=== PATIENT | male | born 1945 | race Caucasian/White ===

== ENCOUNTER 2020-06-05 10:01 | Emergency (ER) | payer OTHER, MEDICARE ==
[~2020-06-05] VITALS: Ht 177.8 cm; Wt 93.0 kg
[~2020-06-05 10:01] MED LIST: CYAN500 PO; LISI20 PO; METF500 PO; VITAMIN D325 MC3 PO
[2020-06-05 10:51] LABS: Hematocrit 46.9 % (37.0-53.0); Hemoglobin 15.6 g/dL (13.5-17.5); Mean Corpuscular HGB 29.9 pg (26.0-34.0); Mean Corpuscular HGB Conc 33.3 g/dL (31.5-36.5); Mean Corpuscular Volume 90 fL (80-100); Mean Platelet Volume 9.8 fL (9.1-12.4); Platelet Count 313 K/mm3 (150-400); RDW Coefficient Variation 13.2 % (11.7-14.2); RDW Standard Deviation 43.2 fL (35.1-46.3); Red Blood Cell Count 5.22 M/mm3 (4.30-5.90); White Blood Cell Count 8.32 K/mm3 (4.00-11.30)
[2020-06-05 11:11] LABS: Alanine Aminotransfer (ALT/SGP 33 U/L (12-78); Albumin, Blood 3.1 g/dL (3.4-5.0); Albumin/Globulin Ratio 0.9 (0.8-1.8); Alk Phos 84 U/L (50-136); Anion Gap 8 mmol/L (6-16); Aspartate Aminotrans (AST/SGOT 20 U/L (12-37); Bilirubin, Total 1.5 mg/dL (0.1-1.0); Blood Urea Nitrogen 25 mg/dL (8-24); Bun/Creatinine Ratio 25.4 (12.0-20.0); CO2, Blood 21 mmol/L (21-32); Calcium, Blood 9.5 mg/dL (8.5-10.1); Chloride, Blood 108 mmol/L (98-108); Creatinine, Blood 0.99 mg/dL (0.60-1.20); Globulin, Blood 3.6 g/dL (2.2-4.0); Glomerular Filtration Rate >60 (60-); Glucose, Blood 161 mg/dL (70-99); Potassium, Blood 3.5 mmol/L (3.5-5.5); Sodium, Blood 137 mmol/L (136-145); Total Protein, Blood 6.7 g/dL (6.4-8.2)
[2020-06-05 11:30] LABS: BAND PERCENT MAN 19 % (0-8); BASOPHILS PERCENT MAN 0 % (0-2); EOSINOPHILS ABSOLUTE MAN 0.16 K/mm3 (0.00-0.68); EOSINOPHILS PERCENT MAN 2 % (0-6); LYMPHOCYTES ABSOLUTE MAN 1.58 K/mm3 (0.84-5.20); LYMPHOCYTES PERCENT MAN 19 % (21-46); MONOCYTES ABSOLUTE MAN 1.49 K/mm3 (0.16-1.47); MONOCYTES PERCENT MAN 18 % (4-13); NEUTROPHILS ABSOLUTE MAN 5.07 K/mm3 (1.96-9.15); SEG NEUTROPHILS PERCENT MAN 42 % (41-73); TOTAL CELLS COUNTED 100
[2020-06-05] MEDS ORDERED: AZIT500 PO (12:23)
== END 2020-06-05 13:45 | disposition home or self-care (01) ==
LOC: ER 10:01
PROVIDERS: Emergency Medicine
DX: A09 Infectious gastroenteritis and colitis, unspecified (principal); E86.0 Dehydration; M25.512 Pain in left shoulder; G89.29 Other chronic pain; I10 Essential (primary) hypertension; F17.210 Nicotine dependence, cigarettes, uncomplicated; Z79.84 Long term (current) use of oral hypoglycemic drugs; Z79.899 Other long term (current) drug therapy
CPT/HCPCS: 36415; 73030; 80053; 85025; 93005; 93010; 96361; 96365; 96375; 99284-25; J0456; J2405; J7030; J7050

== ENCOUNTER 2020-07-13 10:39 | Emergency (ER) | payer OTHER, MEDICARE ==
[~2020-07-13] VITALS: Ht 177.8 cm; Wt 90.7 kg
[~2020-07-13 10:39] MED LIST changes: +AZIT500 PO
[2020-07-13 11:13] LABS: BASOPHILS ABSOLUTE AUTO 0.03 K/mm3 (0.00-0.23); BASOPHILS PERCENT AUTO 0 % (0-2); EOSINOPHILS ABSOLUTE AUTO 0.15 K/mm3 (0.00-0.68); EOSINOPHILS PERCENT AUTO 2 % (0-6); Hematocrit 44.6 % (37.0-53.0); Hemoglobin 14.3 g/dL (13.5-17.5); IMMATURE GRAN ABSOLUTE AUTO 0.03 K/mm3 (0.00-0.10); IMMATURE GRAN PERCENT AUTO 0 % (0-1); LYMPHOCYTES ABSOLUTE AUTO 1.95 K/mm3 (0.84-5.20); LYMPHOCYTES PERCENT AUTO 27 % (21-46); MONOCYTES ABSOLUTE AUTO 0.54 K/mm3 (0.16-1.47); MONOCYTES PERCENT AUTO 7 % (4-13); Mean Corpuscular HGB 29.5 pg (26.0-34.0); Mean Corpuscular HGB Conc 32.1 g/dL (31.5-36.5); Mean Corpuscular Volume 92 fL (80-100); Mean Platelet Volume 9.8 fL (9.1-12.4); NEUTROPHILS ABSOLUTE AUTO 4.67 K/mm3 (1.96-9.15); NEUTROPHILS PERCENT AUTO 63 % (41-73); Platelet Count 252 K/mm3 (150-400); RDW Coefficient Variation 13.5 % (11.7-14.2); RDW Standard Deviation 46.1 fL (35.1-46.3); Red Blood Cell Count 4.85 M/mm3 (4.30-5.90); White Blood Cell Count 7.37 K/mm3 (4.00-11.30)
[2020-07-13 11:35] LABS: Alanine Aminotransfer (ALT/SGP 31 U/L (12-78); Albumin, Blood 3.2 g/dL (3.4-5.0); Alk Phos 85 U/L (50-136); Anion Gap 7 mmol/L (6-16); Aspartate Aminotrans (AST/SGOT 14 U/L (12-37); Bilirubin, Total 1.4 mg/dL (0.1-1.0); Blood Urea Nitrogen 11 mg/dL (8-24); Bun/Creatinine Ratio 15.8 (12.0-20.0); CO2, Blood 25 mmol/L (21-32); Calcium, Blood 9.1 mg/dL (8.5-10.1); Chloride, Blood 107 mmol/L (98-108); Globulin, Blood 3.2 g/dL (2.2-4.0); Glomerular Filtration Rate >60 (60-); Glucose, Blood 121 mg/dL (70-99); Potassium, Blood 3.5 mmol/L (3.5-5.5); Sodium, Blood 139 mmol/L (136-145); Total Protein, Blood 6.4 g/dL (6.4-8.2)
[2020-07-13] MEDS ORDERED: ONDA4ODT SL (12:17)
== END 2020-07-13 14:00 | disposition home or self-care (01) ==
LOC: ER 10:39
PROVIDERS: Emergency Medicine
DX: S09.93XA Unspecified injury of face, initial encounter (principal); R42 Dizziness and giddiness; E11.9 Type 2 diabetes mellitus without complications; I10 Essential (primary) hypertension; Z79.84 Long term (current) use of oral hypoglycemic drugs; Z79.899 Other long term (current) drug therapy; Z87.891 Personal history of nicotine dependence; W01.0XXA Fall on same level from slipping, tripping and stumbling without subsequent striking against object, initial encounter
CPT/HCPCS: 36415; 80053; 82947; 84484; 85025; 93005; 93010; 99284-25

== ENCOUNTER 2020-07-23 20:04 | Emergency (ER) | payer OTHER, MEDICARE ==
[~2020-07-23] VITALS: Ht 177.8 cm; Wt 91.6 kg
[~2020-07-23 20:04] MED LIST changes: +ONDA4ODT SL
[2020-07-23 20:30] LABS: BASOPHILS ABSOLUTE AUTO 0.04 K/mm3 (0.00-0.23); BASOPHILS PERCENT AUTO 0 % (0-2); EOSINOPHILS ABSOLUTE AUTO 0.11 K/mm3 (0.00-0.68); EOSINOPHILS PERCENT AUTO 1 % (0-6); Hematocrit 50.5 % (37.0-53.0); Hemoglobin 16.1 g/dL (13.5-17.5); IMMATURE GRAN ABSOLUTE AUTO 0.02 K/mm3 (0.00-0.10); IMMATURE GRAN PERCENT AUTO 0 % (0-1); LYMPHOCYTES PERCENT AUTO 8 % (21-46); MONOCYTES PERCENT AUTO 10 % (4-13); Mean Corpuscular HGB 29.2 pg (26.0-34.0); Mean Corpuscular HGB Conc 31.9 g/dL (31.5-36.5); Mean Corpuscular Volume 92 fL (80-100); NEUTROPHILS ABSOLUTE AUTO 7.12 K/mm3 (1.96-9.15); NEUTROPHILS PERCENT AUTO 80 % (41-73); Platelet Count 318 K/mm3 (150-400); RDW Coefficient Variation 13.6 % (11.7-14.2); RDW Standard Deviation 46.3 fL (35.1-46.3); Red Blood Cell Count 5.52 M/mm3 (4.30-5.90); White Blood Cell Count 8.89 K/mm3 (4.00-11.30)
[2020-07-23 20:53] LABS: Alanine Aminotransfer (ALT/SGP 40 U/L (12-78); Albumin, Blood 3.7 g/dL (3.4-5.0); Alk Phos 105 U/L (50-136); Anion Gap 4 mmol/L (6-16); Aspartate Aminotrans (AST/SGOT 21 U/L (12-37); Bilirubin, Total 1.2 mg/dL (0.1-1.0); Blood Urea Nitrogen 22 mg/dL (8-24); CO2, Blood 27 mmol/L (21-32); Calcium, Blood 9.8 mg/dL (8.5-10.1); Chloride, Blood 110 mmol/L (98-108); Creatinine, Blood 0.82 mg/dL (0.60-1.20); Globulin, Blood 3.6 g/dL (2.2-4.0); Glomerular Filtration Rate >60 (60-); Glucose, Blood 134 mg/dL (70-99); Potassium, Blood 4.2 mmol/L (3.5-5.5); Sodium, Blood 141 mmol/L (136-145); Total Protein, Blood 7.3 g/dL (6.4-8.2)
[2020-07-23 20:56] LABS: CPK Creatine Kinase 299 U/L (39-308)
[2020-07-23] MEDS ORDERED: NAPROXEN250 M1 PO (22:59)
== END 2020-07-24 00:52 | disposition home or self-care (01) ==
LOC: ER 20:04
PROVIDERS: Emergency Medicine
DX: S39.012A Strain of muscle, fascia and tendon of lower back, initial encounter (principal); S70.01XA Contusion of right hip, initial encounter; E86.0 Dehydration; E11.9 Type 2 diabetes mellitus without complications; I10 Essential (primary) hypertension; W10.9XXA Fall (on) (from) unspecified stairs and steps, initial encounter; Y92.009 Unspecified place in unspecified non-institutional (private) residence as the place of occurrence of the external cause
CPT/HCPCS: 36415; 72100; 73502; 80053; 82550; 83690; 85025; 96361; 96374; 96375; 99285-25; J1885; J3010; J7030

== ENCOUNTER 2020-07-24 11:43 | Emergency (ER) | payer OTHER, MEDICARE ==
[~2020-07-24] VITALS: Ht 172.7 cm; Wt 83.9 kg
[~2020-07-24 11:43] MED LIST changes: +NAPROXEN250 M1 PO
== END 2020-07-24 15:01 | disposition home or self-care (01) ==
LOC: ER 11:43
DX: Z76.89 Persons encountering health services in other specified circumstances (principal); I10 Essential (primary) hypertension; E11.9 Type 2 diabetes mellitus without complications; Z79.84 Long term (current) use of oral hypoglycemic drugs; Z87.891 Personal history of nicotine dependence; Z79.899 Other long term (current) drug therapy
CPT/HCPCS: 99284

== ENCOUNTER 2020-10-21 20:59 | Emergency (ER) | payer OTHER, MEDICARE ==
[~2020-10-21] VITALS: Ht 177.8 cm; Wt 90.7 kg
[2020-10-21 21:33] LABS: BASOPHILS ABSOLUTE AUTO 0.02 K/mm3 (0.00-0.23); BASOPHILS PERCENT AUTO 0 % (0-2); EOSINOPHILS ABSOLUTE AUTO 0.12 K/mm3 (0.00-0.68); EOSINOPHILS PERCENT AUTO 2 % (0-6); Hematocrit 44.6 % (37.0-53.0); Hemoglobin 14.5 g/dL (13.5-17.5); IMMATURE GRAN ABSOLUTE AUTO 0.02 K/mm3 (0.00-0.10); IMMATURE GRAN PERCENT AUTO 0 % (0-1); LYMPHOCYTES ABSOLUTE AUTO 1.34 K/mm3 (0.84-5.20); LYMPHOCYTES PERCENT AUTO 20 % (21-46); MONOCYTES ABSOLUTE AUTO 0.59 K/mm3 (0.16-1.47); MONOCYTES PERCENT AUTO 9 % (4-13); Mean Corpuscular HGB 29.9 pg (26.0-34.0); Mean Corpuscular HGB Conc 32.5 g/dL (31.5-36.5); Mean Corpuscular Volume 92 fL (80-100); Mean Platelet Volume 9.8 fL (9.1-12.4); NEUTROPHILS ABSOLUTE AUTO 4.52 K/mm3 (1.96-9.15); NEUTROPHILS PERCENT AUTO 68 % (41-73); Platelet Count 300 K/mm3 (150-400); RDW Coefficient Variation 13.2 % (11.7-14.2); RDW Standard Deviation 44.5 fL (35.1-46.3); Red Blood Cell Count 4.85 M/mm3 (4.30-5.90); White Blood Cell Count 6.61 K/mm3 (4.00-11.30)
[2020-10-21 21:51] LABS: Alanine Aminotransfer (ALT/SGP 33 U/L (12-78); Albumin, Blood 3.7 g/dL (3.4-5.0); Alk Phos 97 U/L (50-136); Anion Gap 4 mmol/L (6-16); Aspartate Aminotrans (AST/SGOT 26 U/L (12-37); Bilirubin, Total 0.8 mg/dL (0.1-1.0); Blood Urea Nitrogen 19 mg/dL (8-24); Bun/Creatinine Ratio 19.3 (12.0-20.0); CO2, Blood 27 mmol/L (21-32); Chloride, Blood 110 mmol/L (98-108); Creatinine, Blood 0.99 mg/dL (0.60-1.20); Ethanol (Alcohol), Blood, Med <3 mg/dL; Globulin, Blood 3.6 g/dL (2.2-4.0); Glomerular Filtration Rate >60 (60-); Glucose, Blood 117 mg/dL (70-99); Potassium, Blood 3.8 mmol/L (3.5-5.5); Salicylate <1.7 mg/dL (2.8-20.0); Sodium, Blood 141 mmol/L (136-145); Total Protein, Blood 7.3 g/dL (6.4-8.2)
[2020-10-21 21:52] LABS: Acetaminophen, Random <2.0 ug/mL (10.0-30.0)
== END 2020-10-21 23:24 | disposition home or self-care (01) ==
LOC: ER 20:59
PROVIDERS: Physician Assistant
DX: F15.159 Other stimulant abuse with stimulant-induced psychotic disorder, unspecified (principal); Z79.84 Long term (current) use of oral hypoglycemic drugs; Z79.899 Other long term (current) drug therapy; Z87.891 Personal history of nicotine dependence
CPT/HCPCS: 36415; 80053; 85025; 99284; G0480

== ENCOUNTER 2020-11-15 17:49 | Emergency (ER) | payer OTHER ==
[~2020-11-15] VITALS: Ht 175.3 cm; Wt 72.6 kg
== END 2020-11-15 18:55 | disposition home or self-care (01) ==
LOC: ER 17:49
DX: T67.9XXA Effect of heat and light, unspecified, initial encounter (principal); R55 Syncope and collapse; E11.9 Type 2 diabetes mellitus without complications; I10 Essential (primary) hypertension; Z87.891 Personal history of nicotine dependence
CPT/HCPCS: 99283

== ENCOUNTER 2020-12-06 12:25 | Emergency (ER) | payer OTHER ==
[~2020-12-06] VITALS: Ht 177.8 cm; Wt 82.5 kg
== END 2020-12-06 12:45 | disposition home or self-care (01) ==
LOC: ER 12:25
DX: Z73.5 Social role conflict, not elsewhere classified (principal); E11.9 Type 2 diabetes mellitus without complications; I10 Essential (primary) hypertension; Z87.891 Personal history of nicotine dependence
CPT/HCPCS: 99282

== ENCOUNTER 2021-01-11 16:22 | Emergency (ER) | payer OTHER ==
[~2021-01-11] VITALS: Ht 167.6 cm; Wt 81.7 kg
[2021-01-11] MEDS ORDERED: CYCL10 PO (18:32)
== END 2021-01-11 18:55 | disposition home or self-care (01) ==
LOC: ER 16:22
DX: M25.559 Pain in unspecified hip (principal); M54.9 Dorsalgia, unspecified; I10 Essential (primary) hypertension; E11.9 Type 2 diabetes mellitus without complications; Z87.891 Personal history of nicotine dependence
CPT/HCPCS: 36415; 72170; 96374; 99283-25; A9270; J1885

== ENCOUNTER 2021-01-29 15:31 | Emergency (ER) | payer OTHER ==
[~2021-01-29] VITALS: Ht 167.6 cm; Wt 85.7 kg
[~2021-01-29 15:31] MED LIST changes: +CYCL10 PO
[2021-01-29 16:15] LABS: Calcium, Ionized (POC) 1.26 mmol/L (1.10-1.46); Chloride (POC) 107 mmol/L (98-108); Creatinine (POC) 0.8 mg/dL (0.8-1.3); Glucose (ISTAT POC) 110 mg/dL (70-99); Hemoglobin (POC) 12.9 g/dL (13.5-17.5); Potassium (POC) 3.6 mmol/L (3.5-5.5); Sodium (POC) 138 mmol/L (135-148); Total CO2 (POC) 22 mmol/L (21-32)
[2021-01-29 16:55] LABS: Calcium, Ionized (POC) 1.34 mmol/L (1.10-1.46); Chloride (POC) 104 mmol/L (98-108); Creatinine (POC) 0.9 mg/dL (0.8-1.3); Glucose (ISTAT POC) 98 mg/dL (70-99); Hemoglobin (POC) 13.3 g/dL (13.5-17.5); Potassium (POC) 3.7 mmol/L (3.5-5.5); Sodium (POC) 140 mmol/L (135-148); Total CO2 (POC) 25 mmol/L (21-32)
== END 2021-01-29 17:52 | disposition home or self-care (01) ==
LOC: ER 15:31
PROVIDERS: Emergency Medicine
DX: Z00.00 Encounter for general adult medical examination without abnormal findings (principal); M54.2 Cervicalgia; E11.9 Type 2 diabetes mellitus without complications; I10 Essential (primary) hypertension; F17.200 Nicotine dependence, unspecified, uncomplicated; Z86.59 Personal history of other mental and behavioral disorders
CPT/HCPCS: 36415; 80047; 85014; 99283

== ENCOUNTER 2021-03-07 12:33 | Emergency (ER) | payer OTHER ==
[~2021-03-07] VITALS: Ht 175.3 cm; Wt 86.2 kg
== END 2021-03-07 13:35 | disposition home or self-care (01) ==
LOC: ER 12:33
DX: S50.312A Abrasion of left elbow, initial encounter (principal); E11.9 Type 2 diabetes mellitus without complications; I10 Essential (primary) hypertension; F17.200 Nicotine dependence, unspecified, uncomplicated; W19.XXXA Unspecified fall, initial encounter
CPT/HCPCS: 99283

== ENCOUNTER 2021-03-10 08:53 | Emergency (ER) | payer OTHER ==
[~2021-03-10] VITALS: Ht 175.3 cm; Wt 79.4 kg
[2021-03-10 09:37] LABS: BASOPHILS ABSOLUTE AUTO 0.04 K/mm3 (0.00-0.23); BASOPHILS PERCENT AUTO 0 % (0-2); EOSINOPHILS ABSOLUTE AUTO 0.48 K/mm3 (0.00-0.68); EOSINOPHILS PERCENT AUTO 5 % (0-6); Hematocrit 41.6 % (37.0-53.0); Hemoglobin 13.3 g/dL (13.5-17.5); IMMATURE GRAN ABSOLUTE AUTO 0.05 K/mm3 (0.00-0.10); IMMATURE GRAN PERCENT AUTO 1 % (0-1); LYMPHOCYTES ABSOLUTE AUTO 1.83 K/mm3 (0.84-5.20); LYMPHOCYTES PERCENT AUTO 17 % (21-46); MONOCYTES ABSOLUTE AUTO 0.65 K/mm3 (0.16-1.47); MONOCYTES PERCENT AUTO 6 % (4-13); Mean Corpuscular HGB 29.2 pg (26.0-34.0); Mean Corpuscular Volume 91 fL (80-100); Mean Platelet Volume 9.2 fL (9.1-12.4); NEUTROPHILS ABSOLUTE AUTO 7.54 K/mm3 (1.96-9.15); NEUTROPHILS PERCENT AUTO 71 % (41-73); Platelet Count 345 K/mm3 (150-400); RDW Coefficient Variation 13.8 % (11.7-14.2); RDW Standard Deviation 46.7 fL (35.1-46.3); Red Blood Cell Count 4.55 M/mm3 (4.30-5.90); White Blood Cell Count 10.59 K/mm3 (4.00-11.30)
[2021-03-10 09:52] LABS: Alanine Aminotransfer (ALT/SGP 35 U/L (12-78); Albumin, Blood 3.1 g/dL (3.4-5.0); Albumin/Globulin Ratio 0.9 (0.8-1.8); Alk Phos 110 U/L (50-136); Anion Gap 4 mmol/L (6-16); Aspartate Aminotrans (AST/SGOT 17 U/L (12-37); Bilirubin, Total 0.4 mg/dL (0.1-1.0); Blood Urea Nitrogen 16 mg/dL (8-24); Bun/Creatinine Ratio 20.2 (12.0-20.0); CO2, Blood 30 mmol/L (21-32); Calcium, Blood 9.2 mg/dL (8.5-10.1); Chloride, Blood 106 mmol/L (98-108); Creatinine, Blood 0.79 mg/dL (0.60-1.20); Globulin, Blood 3.3 g/dL (2.2-4.0); Glomerular Filtration Rate >60 (60-); Glucose, Blood 105 mg/dL (70-99); Potassium, Blood 3.5 mmol/L (3.5-5.5); Sodium, Blood 140 mmol/L (136-145); Total Protein, Blood 6.4 g/dL (6.4-8.2); Troponin I <0.015 ng/mL (0.000-0.040)
== END 2021-03-10 10:55 | disposition home or self-care (01) ==
LOC: ER 08:53
PROVIDERS: Physician Assistant
DX: Z04.3 Encounter for examination and observation following other accident (principal); I10 Essential (primary) hypertension; E11.9 Type 2 diabetes mellitus without complications; J44.9 Chronic obstructive pulmonary disease, unspecified; F17.200 Nicotine dependence, unspecified, uncomplicated; W06.XXXA Fall from bed, initial encounter
CPT/HCPCS: 36415; 71046; 80053; 83880; 84484; 85025; 93005; 93010; 99284-25

== ENCOUNTER 2021-05-09 10:45 | Observation (INO) | payer OTHER ==
[~2021-05-09] VITALS: Ht 175.3 cm; Wt 79.4 kg
[2021-05-09] MEDS ORDERED: MUPIROCIN TOP (12:37)
[2021-05-09 17:02] LABS: BASOPHILS ABSOLUTE AUTO 0.05 K/mm3 (0.00-0.23); BASOPHILS PERCENT AUTO 1 % (0-2); EOSINOPHILS ABSOLUTE AUTO 0.05 K/mm3 (0.00-0.68); EOSINOPHILS PERCENT AUTO 1 % (0-6); Hemoglobin 13.8 g/dL (13.5-17.5); IMMATURE GRAN ABSOLUTE AUTO 0.02 K/mm3 (0.00-0.10); IMMATURE GRAN PERCENT AUTO 0 % (0-1); LYMPHOCYTES ABSOLUTE AUTO 1.75 K/mm3 (0.84-5.20); LYMPHOCYTES PERCENT AUTO 24 % (21-46); MONOCYTES ABSOLUTE AUTO 0.68 K/mm3 (0.16-1.47); MONOCYTES PERCENT AUTO 9 % (4-13); Mean Corpuscular HGB 29.8 pg (26.0-34.0); Mean Corpuscular HGB Conc 33.7 g/dL (31.5-36.5); Mean Corpuscular Volume 89 fL (80-100); Mean Platelet Volume 9.8 fL (9.1-12.4); NEUTROPHILS ABSOLUTE AUTO 4.68 K/mm3 (1.96-9.15); NEUTROPHILS PERCENT AUTO 65 % (41-73); Platelet Count 335 K/mm3 (150-400); RDW Coefficient Variation 13.5 % (11.7-14.2); RDW Standard Deviation 43.8 fL (35.1-46.3); Red Blood Cell Count 4.63 M/mm3 (4.30-5.90); White Blood Cell Count 7.23 K/mm3 (4.00-11.30)
[2021-05-09 17:21] LABS: Alanine Aminotransfer (ALT/SGP 29 U/L (12-78); Albumin, Blood 3.2 g/dL (3.4-5.0); Alk Phos 106 U/L (50-136); Anion Gap 7 mmol/L (6-16); Aspartate Aminotrans (AST/SGOT 42 U/L (12-37); Bilirubin, Total 2.1 mg/dL (0.1-1.0); Blood Urea Nitrogen 16 mg/dL (8-24); Bun/Creatinine Ratio 21.8 (12.0-20.0); CO2, Blood 26 mmol/L (21-32); Calcium, Blood 9.5 mg/dL (8.5-10.1); Chloride, Blood 105 mmol/L (98-108); Creatinine, Blood 0.73 mg/dL (0.60-1.20); Globulin, Blood 3.3 g/dL (2.2-4.0); Glomerular Filtration Rate >60 (60-); Glucose, Blood 69 mg/dL (70-99); Potassium, Blood 3.8 mmol/L (3.5-5.5); Sodium, Blood 138 mmol/L (136-145); Total Protein, Blood 6.5 g/dL (6.4-8.2)
[2021-05-09] MEDS ORDERED: ATOR20 PO (21:52)
[2021-05-09] MEDS ORDERED: BICALUTAMIDE50 M1 PO (21:53)
[2021-05-09] MEDS ORDERED: Calcium Carbon500 MG (21:55)
[2021-05-09] MEDS ORDERED: THERA-D2000 UNIT PO (21:57)
[2021-05-09 22:13] LABS: Influenza A, PCR NEGATIVE (NEGATIVE); Influenza B, PCR NEGATIVE (NEGATIVE); Resp Syncytial Virus, PCR NEGATIVE (NEGATIVE); SARS-Cov-2 (COVID-19) PCR, MMC NEGATIVE (NEGATIVE)
--- NOTE | 2021-05-10 04:40 | NUR ---
SUMMARY PT ARRIVED TO ROOM IN NO DISTRESS. PT HAS BEEN COOPERATIVE. PT IS FORGETFUL W/ PERIODS OF CONFUSION. PT INCOTINENT W/ ATTENDS AND CONDOM CATH IN PLACE. PT DRESSING ON RIGHT HIP IS C/D/I. PT GROIN IS RED AND NYSTATIN POWDER APPLIED. PT TAKING IN PO FLUIDS AND EATING SOME. PT CURRENTLY SLEEPIN AND IN NO DISTRESS. CALL LIGHT IN REACH AND BED ALRM ON.
[2021-05-10 05:10] LABS: BASOPHILS ABSOLUTE AUTO 0.04 K/mm3 (0.00-0.23); BASOPHILS PERCENT AUTO 1 % (0-2); EOSINOPHILS PERCENT AUTO 2 % (0-6); Hematocrit 41.2 % (37.0-53.0); Hemoglobin 13.8 g/dL (13.5-17.5); IMMATURE GRAN ABSOLUTE AUTO 0.01 K/mm3 (0.00-0.10); IMMATURE GRAN PERCENT AUTO 0 % (0-1); LYMPHOCYTES ABSOLUTE AUTO 2.17 K/mm3 (0.84-5.20); LYMPHOCYTES PERCENT AUTO 32 % (21-46); MONOCYTES ABSOLUTE AUTO 0.69 K/mm3 (0.16-1.47); MONOCYTES PERCENT AUTO 10 % (4-13); Mean Corpuscular HGB 29.6 pg (26.0-34.0); Mean Corpuscular HGB Conc 33.5 g/dL (31.5-36.5); Mean Corpuscular Volume 88 fL (80-100); Mean Platelet Volume 9.6 fL (9.1-12.4); NEUTROPHILS ABSOLUTE AUTO 3.84 K/mm3 (1.96-9.15); NEUTROPHILS PERCENT AUTO 56 % (41-73); Platelet Count 311 K/mm3 (150-400); RDW Coefficient Variation 13.6 % (11.7-14.2); RDW Standard Deviation 44.2 fL (35.1-46.3); Red Blood Cell Count 4.67 M/mm3 (4.30-5.90); White Blood Cell Count 6.85 K/mm3 (4.00-11.30)
[2021-05-10 06:28] LABS: Anion Gap 9 mmol/L (6-16); Blood Urea Nitrogen 17 mg/dL (8-24); Bun/Creatinine Ratio 21.8 (12.0-20.0); CO2, Blood 25 mmol/L (21-32); Calcium, Blood 9.6 mg/dL (8.5-10.1); Chloride, Blood 107 mmol/L (98-108); Creatinine, Blood 0.78 mg/dL (0.60-1.20); Glomerular Filtration Rate >60 (60-); Glucose, Blood 86 mg/dL (70-99); Potassium, Blood 3.4 mmol/L (3.5-5.5); Sodium, Blood 141 mmol/L (136-145)
[2021-05-10] MEDS ORDERED: ANTIFUNGAL POWD71 GM TOP (13:45)
[2021-05-10] MEDS ORDERED: SILVADENE20 G3 TOP (13:46)
--- NOTE | 2021-05-10 14:41 | NUR ---
DISCHARGE DISCHARGE INSTRUCTIONS, MEDICATION LIST AND FOLLOW UP APPOINTMENTS REVIEWED WITH PT BY ESTHER KRAUS. PT VERBALLY INDICATED UNDERSTANDING OF ALL INSTRUCTIONS RECEIVED. PT ESCORTED OUT VIA W/C BY ESTHER KRAUS. PT TRANSPORTED HOME VIA [employer], AUTHORIZED BY ALISON GOULD NURSING PROFESSIONAL PROGRAMMER ANALYST
== END 2021-05-10 14:40 | disposition home health service (06) ==
LOC: ER 10:45 → MEDS 10:46 → ERHOLD 10:46 → MEDS 21:08
PROVIDERS: Student in an Organized Health Care Education/Training Program; ADMIT Internal Medicine
DX: S70.211A Abrasion, right hip, initial encounter (principal); E11.649 Type 2 diabetes mellitus with hypoglycemia without coma; E87.6 Hypokalemia; I10 Essential (primary) hypertension; R74.01 Elevation of levels of liver transaminase levels; L30.4 Erythema intertrigo; F17.210 Nicotine dependence, cigarettes, uncomplicated; X58.XXXA Exposure to other specified factors, initial encounter; Z85.46 Personal history of malignant neoplasm of prostate; Z86.39 Personal history of other endocrine, nutritional and metabolic disease
CPT/HCPCS: 0241U; 36415; 73502; 80048; 80053; 82947; 83735; 85025; 90471; 90714; 97116; 97162; 97530; 99285-25; A9270; G0378; G0480

== ENCOUNTER 2021-05-28 09:28 | Emergency (ER) | payer OTHER ==
[~2021-05-28] VITALS: Ht 175.3 cm; Wt 89.8 kg
[~2021-05-28 09:28] MED LIST changes: +ANTIFUNGAL POWD71 GM TOP; +ATOR20 PO; +BICALUTAMIDE50 M1 PO; +Calcium Carbon500 MG; +MUPIROCIN TOP; +SILVADENE20 G3 TOP; +THERA-D2000 UNIT PO
== END 2021-05-28 10:57 | disposition home or self-care (01) ==
LOC: ER 09:28
DX: M79.671 Pain in right foot (principal); M79.672 Pain in left foot; E11.9 Type 2 diabetes mellitus without complications; I10 Essential (primary) hypertension; F17.210 Nicotine dependence, cigarettes, uncomplicated; Z79.899 Other long term (current) drug therapy
CPT/HCPCS: 73630; 99283-25

== ENCOUNTER 2021-06-04 13:16 | Emergency (ER) | payer OTHER ==
[~2021-06-04] VITALS: Ht 170.2 cm; Wt 88.5 kg
[2021-06-04 14:28] LABS: BASOPHILS ABSOLUTE AUTO 0.08 K/mm3 (0.00-0.23); BASOPHILS PERCENT AUTO 1 % (0-2); EOSINOPHILS PERCENT AUTO 1 % (0-6); IMMATURE GRAN ABSOLUTE AUTO 0.03 K/mm3 (0.00-0.10); IMMATURE GRAN PERCENT AUTO 0 % (0-1); LYMPHOCYTES ABSOLUTE AUTO 1.23 K/mm3 (0.84-5.20); LYMPHOCYTES PERCENT AUTO 10 % (21-46); MONOCYTES ABSOLUTE AUTO 0.86 K/mm3 (0.16-1.47); MONOCYTES PERCENT AUTO 7 % (4-13); Mean Corpuscular HGB Conc 31.3 g/dL (31.5-36.5); Mean Corpuscular Volume 96 fL (80-100); NEUTROPHILS ABSOLUTE AUTO 9.81 K/mm3 (1.96-9.15); NEUTROPHILS PERCENT AUTO 81 % (41-73); NRBC ABSOLUTE 0.02 K/mm3 (0.00-0.02); NRBC Auto 0.2 /100 WBC (0.0-0.2); Platelet Count 341 K/mm3 (150-400); RDW Standard Deviation 49.1 fL (35.1-46.3); White Blood Cell Count 12.11 K/mm3 (4.00-11.30)
[2021-06-04 14:36] LABS: Alanine Aminotransfer (ALT/SGP 32 U/L (12-78); Albumin, Blood 3.2 g/dL (3.4-5.0); Albumin/Globulin Ratio 0.9 (0.8-1.8); Alk Phos 99 U/L (50-136); Anion Gap 3 mmol/L (6-16); Aspartate Aminotrans (AST/SGOT 30 U/L (12-37); Bilirubin, Total 0.6 mg/dL (0.1-1.0); Blood Urea Nitrogen 19 mg/dL (8-24); Bun/Creatinine Ratio 28.1 (12.0-20.0); CO2, Blood 25 mmol/L (21-32); Calcium, Blood 9.1 mg/dL (8.5-10.1); Chloride, Blood 113 mmol/L (98-108); Creatinine, Blood 0.68 mg/dL (0.60-1.20); Ethanol (Alcohol), Blood, Med <3 mg/dL; Globulin, Blood 3.4 g/dL (2.2-4.0); Glomerular Filtration Rate >60 (60-); Glucose, Blood 104 mg/dL (70-99); Potassium, Blood 4.8 mmol/L (3.5-5.5); Sodium, Blood 141 mmol/L (136-145); Total Protein, Blood 6.6 g/dL (6.4-8.2); Troponin I <0.015 ng/mL (0.000-0.040)
[2021-06-04 15:11] LABS: Base Excess Venous -1.7 mmol/L; Bicarbonate Venous 23.3 mmol/L (24.0-30.0); PCO2 Venous 36.9 mmHg (38-42); PO2 Venous 195 mmHg (38-42)
[2021-06-04 15:30] LABS: U Amphetamine Screen DETECTED; U Barbituate Screen Not Detected; U Benzodiazapine Screen Not Detected; U Buprenorphine Screen Not Detected; U Cannabinoids Screen Not Detected; U Cocaine Screen Not Detected; U Methadone Screen Not Detected; U Methamphetamine Screen DETECTED; U Opiates Screen Not Detected; U Oxycodone Screen Not Detected; U Phencyclidine Screen Not Detected; U Propoxyphene Screen Not Detected
[2021-06-04] MEDS ORDERED: LOPE2C PO (15:53)
== END 2021-06-04 17:57 | disposition home or self-care (01) ==
LOC: ER 13:16
PROVIDERS: Emergency Medicine
DX: R19.7 Diarrhea, unspecified (principal); F15.10 Other stimulant abuse, uncomplicated; E11.9 Type 2 diabetes mellitus without complications; I10 Essential (primary) hypertension; F17.200 Nicotine dependence, unspecified, uncomplicated
CPT/HCPCS: 36415; 80053; 82140; 82375; 82803; 84484; 85025; 93005; 93010; 99285-25; A9270; G0480; J7030

== ENCOUNTER 2021-06-06 08:41 | Emergency (ER) | payer OTHER ==
[~2021-06-06] VITALS: Ht 177.8 cm; Wt 79.4 kg
[~2021-06-06 08:41] MED LIST changes: +LOPE2C PO
[2021-06-06 10:41] LABS: Influenza A, PCR NEGATIVE (NEGATIVE); Influenza B, PCR NEGATIVE (NEGATIVE); Resp Syncytial Virus, PCR NEGATIVE (NEGATIVE); SARS-Cov-2 (COVID-19) PCR, MMC NEGATIVE (NEGATIVE)
[2021-06-06] MEDS ORDERED: Zithromax250 MG PO (10:45)
== END 2021-06-06 11:45 | disposition home or self-care (01) ==
LOC: ER 08:41
PROVIDERS: Physician Assistant
DX: J18.9 Pneumonia, unspecified organism (principal); Z20.822 Contact with and (suspected) exposure to COVID-19; E11.9 Type 2 diabetes mellitus without complications; I10 Essential (primary) hypertension; F17.210 Nicotine dependence, cigarettes, uncomplicated
CPT/HCPCS: 0241U; 71045; 99284-25; A9270

== ENCOUNTER 2021-06-25 10:02 | Emergency (ER) | payer OTHER ==
[~2021-06-25] VITALS: Ht 177.8 cm; Wt 81.2 kg
[~2021-06-25 10:02] MED LIST changes: +Zithromax250 MG PO
== END 2021-06-25 10:29 | disposition left against medical advice (07) ==
LOC: ER 10:02
DX: Z53.21 Procedure and treatment not carried out due to patient leaving prior to being seen by health care provider (principal); I10 Essential (primary) hypertension; E11.9 Type 2 diabetes mellitus without complications; F17.210 Nicotine dependence, cigarettes, uncomplicated; Z79.899 Other long term (current) drug therapy

== ENCOUNTER 2021-09-28 13:29 | Emergency (ER) | payer OTHER ==
[~2021-09-28] VITALS: Ht 177.8 cm; Wt 81.7 kg
== END 2021-09-28 14:05 | disposition home or self-care (01) ==
LOC: ER 13:29
DX: S41.112A Laceration without foreign body of left upper arm, initial encounter (principal); E11.9 Type 2 diabetes mellitus without complications; I10 Essential (primary) hypertension; F17.210 Nicotine dependence, cigarettes, uncomplicated; X58.XXXA Exposure to other specified factors, initial encounter
CPT/HCPCS: 90471; 90714; 99283-25

== ENCOUNTER 2021-11-12 11:50 | Emergency (ER) | payer OTHER ==
[~2021-11-12] VITALS: Ht 177.8 cm; Wt 90.7 kg
[2021-11-12] MEDS ORDERED: TAMS.4ER PO (13:40)
[2021-11-12] MEDS ORDERED: DOCUZEN 8.6-501 EACH PO (13:40)
== END 2021-11-12 13:49 | disposition left against medical advice (07) ==
LOC: ER 11:50
DX: R35.0 Frequency of micturition (principal); R32 Unspecified urinary incontinence; R53.1 Weakness; E11.9 Type 2 diabetes mellitus without complications; I10 Essential (primary) hypertension; F17.200 Nicotine dependence, unspecified, uncomplicated; F15.90 Other stimulant use, unspecified, uncomplicated; F12.90 Cannabis use, unspecified, uncomplicated; Z85.46 Personal history of malignant neoplasm of prostate; Z91.14 Patient's other noncompliance with medication regimen; Z79.899 Other long term (current) drug therapy
CPT/HCPCS: 99283

== ENCOUNTER 2021-11-14 14:38 | Inpatient (IN) | payer OTHER ==
[~2021-11-14] VITALS: Ht 177.8 cm; Wt 77.4 kg
[~2021-11-14 14:38] MED LIST changes: +DOCUZEN 8.6-501 EACH PO; +TAMS.4ER PO
[2021-11-14 17:18] LABS: Source, Urine Voided
[2021-11-14 17:25] LABS: Appearance, Urine Clear (Clear); Bilirubin, Urine Neg (Neg); Blood, Urine 1+ (Neg); Color, Urine Yellow (P-Yellow); Glucose Qualitative, Urine Neg (Neg); Ketones, Urine Neg (Neg); Leukocyte Esterase, Urine Neg (Neg); Nitrite, Urine Neg (Neg); Protein, Urine 1+ (Neg); Specific Gravity, Urine 1.025 (1.003-1.022); Urobilinogen, Urine NORM (Normal)
[2021-11-14 17:35] LABS: Red Blood Cells, Urine 0-2 /hpf (0-2)
[2021-11-14 17:37] LABS: Squamous Epithelial Cells Not Seen /hpf (Few)
[2021-11-14 17:39] LABS: Bacteria Few /hpf
[2021-11-14 18:03] LABS: BASOPHILS ABSOLUTE AUTO 0.03 K/mm3 (0.00-0.23); BASOPHILS PERCENT AUTO 0 % (0-2); EOSINOPHILS ABSOLUTE AUTO 0.03 K/mm3 (0.00-0.68); EOSINOPHILS PERCENT AUTO 0 % (0-6); Hematocrit 46.4 % (37.0-53.0); Hemoglobin 14.5 g/dL (13.5-17.5); IMMATURE GRAN ABSOLUTE AUTO 0.02 K/mm3 (0.00-0.10); IMMATURE GRAN PERCENT AUTO 0 % (0-1); LYMPHOCYTES ABSOLUTE AUTO 1.53 K/mm3 (0.84-5.20); LYMPHOCYTES PERCENT AUTO 14 % (21-46); MONOCYTES ABSOLUTE AUTO 0.35 K/mm3 (0.16-1.47); MONOCYTES PERCENT AUTO 3 % (4-13); Mean Corpuscular HGB 30.3 pg (26.0-34.0); Mean Corpuscular HGB Conc 31.3 g/dL (31.5-36.5); Mean Corpuscular Volume 97 fL (80-100); Mean Platelet Volume 9.4 fL (9.1-12.4); NEUTROPHILS ABSOLUTE AUTO 8.77 K/mm3 (1.96-9.15); NEUTROPHILS PERCENT AUTO 82 % (41-73); Platelet Count 323 K/mm3 (150-400); RDW Coefficient Variation 13.2 % (11.7-14.2); RDW Standard Deviation 47.4 fL (35.1-46.3); Red Blood Cell Count 4.78 M/mm3 (4.30-5.90); White Blood Cell Count 10.73 K/mm3 (4.00-11.30)
[2021-11-14 18:25] LABS: Albumin, Blood 3.4 g/dL (3.4-5.0); Bilirubin, Total 0.4 mg/dL (0.1-1.0); Bun/Creatinine Ratio 27.6 (12.0-20.0); Calcium, Blood 9.2 mg/dL (8.5-10.1); Creatinine, Blood 0.76 mg/dL (0.60-1.20); Globulin, Blood 3.4 g/dL (2.2-4.0); Potassium, Blood 4.3 mmol/L (3.5-5.5); Total Protein, Blood 6.8 g/dL (6.4-8.2)
[2021-11-14 20:22] LABS: Thyroid Stimulating Hormone 0.538 uIU/mL (0.360-4.800)
[2021-11-14 20:53] LABS: U Amphetamine Screen Not Detected; U Barbituate Screen Not Detected; U Benzodiazapine Screen Not Detected; U Buprenorphine Screen Not Detected; U Cannabinoids Screen Not Detected; U Cocaine Screen Not Detected; U Methadone Screen Not Detected; U Methamphetamine Screen DETECTED; U Opiates Screen Not Detected; U Oxycodone Screen Not Detected; U Phencyclidine Screen Not Detected; U Propoxyphene Screen Not Detected
--- NOTE | 2021-11-15 | NUR ---
Assumed Care. Patient arrived to the unit via gurney. Increase in aggitation with transfer over to bed. Alert to self, mumbled speech, able to state name but not , confused, pupils small sluggish, saying he wants to get up and leave, does not follow direction. Tends to grab at staff, pulling off lines. Aggitated, and unable to re-orient. Lungs clear, sats >95% on RA, no cough or congested noted. Sinus Tach in the 110-130's. Unable to answer questions about chest pain. Elevated troponin. Difficult to get good vitals due to aggitation and fighting the cords and lines. Continues to pull lines off. Incontient of urine, bed was soaked. Bilateral rizzo wounds, see pics in chart. Finishing antibotic infusion. Will be making call to MD for change in meds, and orders. Bed alarm is on.
--- NOTE | 2021-11-15 00:40 | NUR ---
PATIENT CONTINUES TO CRAWL OUT OF BED, PULLING OFF LINES, INCREASE AGGITATION, CURSING. HULLUCINATING TELLING PEOPLE TO LEAVE HIM ALONE, WANTING OUT OF HERE. LACTIC ACID CAME BACK AT 2.5 AND TROPONIN 2113. SPOKE TO DR. MIXON IN REGARDS TO AGGITATION AND LABS. ORDER FOR PRECEDEX RECEIVED.
[2021-11-15 01:44] LABS: Influenza A Negative (NEGATIVE); Influenza B Negative (NEGATIVE)
--- NOTE | 2021-11-15 01:48 | NUR ---
PRECEDEX NOW UP TO 0.7MCQ/HR. PATIENT CONTINUES TO ATTEMPT TO GET UP, CONSTANTLY HAVING TO RE-DIRECT AND REPOSITION PATIENT BACK IN BED. CONSTANTLY HAVING TO PUT VITALS LINES BACK ON AND IN PLACE. SPOKE TO DR. MIXON AND GOT ORDER FOR ATIVAN CHANGED TO Q2 AND INCREASED TO 1MG. WILL ADMINISTER.
[2021-11-15 02:13] LABS: SARS-Cov-2 (COVID-19) PCR, MMC NEGATIVE (NEGATIVE)
--- NOTE | 2021-11-15 02:15 | NUR ---
Patient has received 1mg of ativan, he was calm for short period of time but aggiation continues dispite the medications. He has removed his attends several times, frequent urination, have changed him and beding several times, and replaced lines. Soft restraints have been intiated. Will continue to monitor.
[2021-11-15 02:19] LABS: BASOPHILS ABSOLUTE AUTO 0.03 K/mm3 (0.00-0.23); BASOPHILS PERCENT AUTO 0 % (0-2); EOSINOPHILS ABSOLUTE AUTO 0.01 K/mm3 (0.00-0.68); EOSINOPHILS PERCENT AUTO 0 % (0-6); Hematocrit 39.9 % (37.0-53.0); Hemoglobin 13.3 g/dL (13.5-17.5); IMMATURE GRAN ABSOLUTE AUTO 0.04 K/mm3 (0.00-0.10); IMMATURE GRAN PERCENT AUTO 0 % (0-1); LYMPHOCYTES ABSOLUTE AUTO 1.51 K/mm3 (0.84-5.20); LYMPHOCYTES PERCENT AUTO 12 % (21-46); MONOCYTES PERCENT AUTO 5 % (4-13); Mean Corpuscular HGB 30.6 pg (26.0-34.0); Mean Corpuscular HGB Conc 33.3 g/dL (31.5-36.5); Mean Platelet Volume 9.4 fL (9.1-12.4); NEUTROPHILS ABSOLUTE AUTO 10.77 K/mm3 (1.96-9.15); NEUTROPHILS PERCENT AUTO 83 % (41-73); Platelet Count 282 K/mm3 (150-400); RDW Coefficient Variation 13.2 % (11.7-14.2); RDW Standard Deviation 44.4 fL (35.1-46.3); Red Blood Cell Count 4.34 M/mm3 (4.30-5.90); White Blood Cell Count 12.96 K/mm3 (4.00-11.30)
[2021-11-15 02:23] LABS: Mean Corpuscular Volume 92 fL (80-100)
[2021-11-15 02:37] LABS: Albumin, Blood 3.1 g/dL (3.4-5.0); Bilirubin, Total 0.9 mg/dL (0.1-1.0); Bun/Creatinine Ratio 26.5 (12.0-20.0); Calcium, Blood 8.8 mg/dL (8.5-10.1); Creatinine, Blood 0.79 mg/dL (0.60-1.20); Total Protein, Blood 6.1 g/dL (6.4-8.2)
[2021-11-15 06:42] LABS: International Normalized Ratio 1.13; Prothrombin Time Results 11.8 Sec (9.7-11.5)
--- NOTE | 2021-11-15 07:23 | NUR ---
Shift Summary: AOx1, confused with increase in aggitation t/o the night, resulting precedex gtt at 0.7mcq/hr. Ativan q2 hrs, 1mg given, and soft restraints placed. He is unable to state his . Continues to have hullucinations both auditory and visual. Aggitation and fighting restraints finally eased around 0400 where he started to fall a sleep for periods at a time. Still wakes up trying to ripe cords off and crawl out of bed. LS clear t/o, Sleep apnea periods with drop in sats to 85%, 2 L NC placed to keep sats greater 95%. Sinus tach most of shift with rates 100-130's when asleep rate is 70's. Several PVC's noted. Abd soft, non-tender, smear of brown BM noted. Attends in place. Frequent urination and urgency, 7 saturated attends change and bedding, condom cath placed, 300cc clear urine noted. Skin pwd, afebrile, bilateral rizzo have friction ulcers each in different stages of healing, see pics in chart. Critical labs: lactic acid 2.5; Troponin [address] Sands notified, no new orders. LR started at 125, NS TKO, Ampicillian, Vanco, and Aclyvoir all administered. Held PO meds due to AMS and inability to follow direction and NPO status. Passed onto dayshift to hold lovenox, and need to contact family for consent for LP procedure today.
--- NOTE | 2021-11-15 11:39 | NUR ---
LP PT TAKEN TO IMAGING FOR LP. PT SEDATED WITH PRECEDEX AT 0.7 MCG/KG/HR AND MEDICATED WITH ATIVAN PRE PROCEDURE. PT PLACED SUPINE FOR LP, PT TOLERATED WELL. PT RETURNED TO ICU ROOM AT THIS TIME.
[2021-11-15 11:40] LABS: Source, Urine Foley catheter
[2021-11-15 11:45] LABS: Appearance, Urine Clear (Clear); Bilirubin, Urine Neg (Neg); Blood, Urine Neg (Neg); Color, Urine Yellow (P-Yellow); Glucose Qualitative, Urine Neg (Neg); Ketones, Urine Neg (Neg); Leukocyte Esterase, Urine Neg (Neg); Nitrite, Urine Neg (Neg); Protein, Urine Neg (Neg); Urobilinogen, Urine NORM (Normal)
[2021-11-15 12:06] LABS: Automated CSF WBC Count 0.001 K/mm3 (0-5); WBC Count, CSF 1 /mm3 (0-5)
[2021-11-15 12:31] LABS: Appearance, CSF Clear (Clear); Color, CSF No Color (No Color); RBC Count, CSF 0 /mm3 (0-0)
[2021-11-15 12:38] LABS: Lymphocytes, CSF 77 % (40-80); Monocytes, CSF 19 % (15-45); Neutrophils, CSF 4 % (0-6)
[2021-11-15 14:49] LABS: Cryptococcus Neoformans/Gattii Not Detected (NOT DETECT); Enterovirus Not Detected (NOT DETECT); Escherichia Coli K1 Not Detected (NOT DETECT); Haemophilus Influenza Not Detected (NOT DETECT); Herpes Simplex Virus 1 Not Detected (NOT DETECT); Herpes Simplex Virus 2 Not Detected (NOT DETECT); Human Herpesvirus 6 Not Detected (NOT DETECT); Human Parechovirus Not Detected (NOT DETECT); Listeria Monocytogenes Not Detected (NOT DETECT); Neisseria Meningitidis Not Detected (NOT DETECT); Streptococcus Agalactiae Not Detected (NOT DETECT); Streptococcus Pneumoniae Not Detected (NOT DETECT); Varicella Zoster Virus Not Detected (NOT DETECT)
--- NOTE | 2021-11-15 17:21 | NUR ---
SHIFT SUMMARY: PT SLEPT ON AND OFF A MAJORITY OF THIS SHIFT. MOANS OUT FREQUENTLY. UNABLE TO FOLLOW COMMANDS. REMAINS SEDATED WITH PRECEDEX INFUSING AT .7/MCG/KG/HR. PT ON 2L NC SATING >95%. HR 70'S. BP STABLE. PT REMAINED AFEBRILE THIS SHIFT. DALE CATHETER PLACED THIS AFTERNOON. DRAINING CLEAR YELLOW URINE TO GRAVITY. HAD 1200ML OUT THIS SHIFT. REPOS Q2. WILL REPORT TO ONCOMING RN.
--- NOTE | 2021-11-15 20:34 | NUR ---
PATIENT SLEEPING AWAKENS EASILY, WHEN AWAKE BECOMING ANXIOUS AND PULLING AT DALE, HEART MONITOR AND IV LINES. ABLE TO VERBALIZE NAME AND BIRTHDAY, BUT CONFUSED TO OTHER QUESTIONS AND DOES NOT FOLLOW DIRECTIONS. PATIENT REPEATING SAME SENTENCE OVER AND OVER, NOT HOLDING CONVERSATION. MAEW, BUT MOSTLY HOLDING EXTREMITIES TIGHTLY. PRECEDEX 0.7 MCG FOR AGITATION. HEPARIN 15 U/KG PER PHARMACY. LOW BACK SITE FROM LP CLEAN AND DRY WITH NO SWELLING SEEN.
--- NOTE | 2021-11-15 23:23 | NUR ---
PATIENT RESTLESS PULLING OFF GOWN AND BLANKETS. VERBALIZED FEELING ITCHY. BENADRYL IV GIVEN WITH GOOD RESULTS
--- NOTE | 2021-11-16 06:22 | NUR ---
SUMMARY PATIENT EITHER SLEEPING OR AGITATED AND PULLING AT LINES AND CORDS AND YELLING. PATIENT EASILY AGITATED WITH BEING ASKED QUESTIONS. ORIENTATED TO SELF ONLY. WHEN REMINDED OF BEING IN THE HOSPITAL HE APPEARS SURPRISED DESPITE BEING TOLD THIS INFORMATION JUST 2 HRS AGO. PRECEDEX 0.7 MCG CONTINUES AND BENADRYL GIVEN TWICE. FREQUENT ORAL CARE WITH SUCTION SWAB FOR C/O DRY MOUTH. HEPARIN DRIP CONTINUES PER PHARMACY. DIFFICULTY KEEPING PATIENT POSITIONED TO HIS SIDES T/O NIGHT DUE TO PATIENT SHIFTING SELF FREQUENTLY OFF PILLOWS.
--- NOTE | 2021-11-16 07:26 | NUR ---
ASSUMPTION OF CARE RECEIVED REPORT FROM ANKIT KRAUS, ASSUMED CARE OF PATIENT. PATIENT IN BED WITH EYES CLOSED, 02 AT 2L VIA NC WITH PRECEDEX INFUSING AT 0.7MCG/KG. VITALS STABLE. BILAT WRIST RESTRAINTS IN PLACE. DALE CATHETER PATENT AND DRAINING CLEAR, YELLOW URINE. WILL REVIEW ORDERS AND TREAT PRESCRIBED.
[2021-11-16 07:34] LABS: BASOPHILS ABSOLUTE AUTO 0.05 K/mm3 (0.00-0.23); BASOPHILS PERCENT AUTO 0 % (0-2); EOSINOPHILS ABSOLUTE AUTO 0.03 K/mm3 (0.00-0.68); EOSINOPHILS PERCENT AUTO 0 % (0-6); Hematocrit 39.5 % (37.0-53.0); Hemoglobin 12.8 g/dL (13.5-17.5); IMMATURE GRAN ABSOLUTE AUTO 0.09 K/mm3 (0.00-0.10); IMMATURE GRAN PERCENT AUTO 1 % (0-1); LYMPHOCYTES ABSOLUTE AUTO 1.72 K/mm3 (0.84-5.20); LYMPHOCYTES PERCENT AUTO 11 % (21-46); MONOCYTES ABSOLUTE AUTO 0.81 K/mm3 (0.16-1.47); MONOCYTES PERCENT AUTO 5 % (4-13); Mean Corpuscular HGB 30.3 pg (26.0-34.0); Mean Corpuscular HGB Conc 32.4 g/dL (31.5-36.5); Mean Corpuscular Volume 94 fL (80-100); Mean Platelet Volume 10.9 fL (9.1-12.4); NEUTROPHILS ABSOLUTE AUTO 12.94 K/mm3 (1.96-9.15); NEUTROPHILS PERCENT AUTO 83 % (41-73); Platelet Count 262 K/mm3 (150-400); RDW Coefficient Variation 13.3 % (11.7-14.2); RDW Standard Deviation 45.8 fL (35.1-46.3); Red Blood Cell Count 4.22 M/mm3 (4.30-5.90); White Blood Cell Count 15.64 K/mm3 (4.00-11.30)
[2021-11-16 07:47] LABS: Albumin, Blood 2.9 g/dL (3.4-5.0); Albumin/Globulin Ratio 0.9 (0.8-1.8); Bilirubin, Total 1.2 mg/dL (0.1-1.0); Bun/Creatinine Ratio 22.3 (12.0-20.0); Calcium, Blood 9.5 mg/dL (8.5-10.1); Creatinine, Blood 0.67 mg/dL (0.60-1.20); Globulin, Blood 3.4 g/dL (2.2-4.0); Potassium, Blood 3.6 mmol/L (3.5-5.5); Total Protein, Blood 6.3 g/dL (6.4-8.2)
--- NOTE | 2021-11-16 12:41 | NUR ---
CONFUSION PRECEDEX WAS TITRATED DOWN TO ASSESS PATIENT'S NEURO STATUS. AT 0.4MCG/KG PATIENT AWOKE, SHOUTING WITH CLEAR SPEECH SAYING EVERYONE WAS A SON OF A BITCH AND HE WASN'T GOING TO STAND TO BE TREATED THIS WAY. RN ATTEMPTED TO ORIENT PATIENT TO SITUATION BY EXPLAINING RESTRAINTS AND REASON FOR HOSPITALIZATION. PATIENT STATED THAT RN WAS A LIAR AND THAT RN WAS MEAN AND A SON OF A BITCH. WHEN ASKED IF PATIENT KNEW WHERE HE WAS HE STATED "I'M IN HELL" AND CONTINUED TO SHOUT THAT PHRASE. REPOSITIONED PATIENT AND PATIENT BEGAN REACHING VERY STRONGLY TOWARDS LINES AND STAFF, CONTINUED RESTRAINTS PATIENT THEN SPIT A LARGE AMOUNT OF THICK, DARK SPUTUM AIMING TOWARDS STAFF. PRECEDEX INCREASED TO 0.6MCG/KG. WILL CONTINUE TO MONITOR AND MAINTAIN SAFETY.
--- NOTE | 2021-11-16 13:39 | NUR ---
CONFUSION PATIENT CONTINUOUSLY CALLING OUT SCREAMING TO OPEN THESE DOORS, PATIENT DOES NOT RESPOND TO RE-ORIENTATION. WHEN RN ATTEMPTS TO SPEAK TO PATIENT PATIENT CONTINUES TO YELL BACK STATING "I WILL NOT LET SOME BROAD TELL ME WHAT TO DO". WHEN RN ASKS PATIENT IF HE CAN TELL HER WHERE HE IS HE SHOUTS "JUST LET ME BE WHERE I AM". ATIVAN PRN WAS GIVEN AND PRECEDEX IS NOW AT 0.7MCG/KG.
--- NOTE | 2021-11-16 17:40 | NUR ---
SHIFT SUMMARY PATIENT DISORIENTED THROUGH SHIFT. UNABLE TO ORIENT TO SITUATION. PATIENT FREQUENLY CALLING OUT, YELLING FOR CARIDAD AND TELLING RN SHE [place]. PATIENT YELLING LOUDLY, WHEN ASKED WHY HE IS YELLING PATIENT WILL SAY BECAUSE YOU'RE A WITCH. MULTIPLE ATTEMPTS TO ORIENT PATIENT TO SITUATION AND PATIENT CONTINUES TO SWEAR, CALL RN LIAR AND WANT CARIDAD. PRECEDEX CONTINUES, FREQUENT ORAL CARE PROVIDED. [address] AT 2L. WILL CONTINUE TO MONITOR AND REPORT TO ONCOMING RN.
--- NOTE | 2021-11-16 20:25 | NUR ---
ASSUMED CARE AT 1900 PT LAYING IN BED SLEEPING WHEN ARRIVED ONTO SHIFT. PT IS CONFUSED AND IT'S HARD TO FOLLOW HIS CONVERSATION; SPONTANIOUSLY HE STATED "I'VE NEVER TRIED POT WITH SOCKS ON" AND "I NEED TO GET THIS TOOTH OUT BECAUSE IT'S TIME"; OCCATIONALLY FOLLOWS SIMPLE DIRECTIONS LIKE OPENING EYES AND MOVING SINGLE EXTREMITIES; STATES THAT HE IS IN THE "[facility]"; UNABLE TO ANSWER OTHER ORIENTATION QUESTIONS; PRECEDEX INFUSING AT 0.7MCG/KG/HR; UNABLE TO REASON OR REDIRECT PT WHEN HE IS AGITATED; PRN ATIVAN AND BENADRYL AVAILABLE. SPO2 >95% ON 2L NC. HR 70-90'S; SBP 140'S; BLE COOL TO TOUCH WITH SOME MOTTLING NOTED. DALE IN PLACE AND DRAINING TO GRAVITY. DRESSINGS CONT TO BE ON BILATERAL SHINS; BILATERAL HEEL PROTECTORS PLACED. HEPARIN INFUSING AT 17U/KG/HR. NS INFUSING 100ML/HR. SEE SHIFT ASSESSMENT FOR FULL ASSESSMENT.
--- NOTE | 2021-11-16 23:55 | NUR ---
UPDATE PT EASILY ESCULATES RIGHT BEFORE PRN ATIVAN OR BENADRYL IS DUE. PT WAS JUST YELLING FOR NO APPARENT REASON. WHEN ASKED WHY HE WAS YELLING , HE WOULD YELL, "I'M NOT YELLING". PT ASKED FOR HELP SEVERAL TIMES, WHEN RN IS THERE TO HELP, PT JUST KEPT SAYING HE NEEDS HELP WHILE PULLING AT RESTRAINTS AND CURSING AT RN. UNABLE TO BE REDIRECTED. WHEN SINGLE ARM IS OUT OF RESTRAINT, PT JERKS HIS ARM AROUND, AND REACHES FOR RESTRAINT AND LINES. RESTRAINTS CONT TO BE IN PLACE. ALSO HALLUCINATING ABOUT A SPOON WITH DELUSIONS ABOUT HIS TRUCK BEING STOLLEN. PRN BENADRYL GIVEN ONCE AND PRN ATIVAN GIVEN TWICE. PRECEDEX CONT TO BE INFUSING AT 0.7MCG/KG/HR.
[2021-11-17 03:44] LABS: Albumin, Blood 2.6 g/dL (3.4-5.0); Albumin/Globulin Ratio 0.7 (0.8-1.8); Bilirubin, Total 1.4 mg/dL (0.1-1.0); Bun/Creatinine Ratio 19.1 (12.0-20.0); Calcium, Blood 9.1 mg/dL (8.5-10.1); Creatinine, Blood 0.68 mg/dL (0.60-1.20); Globulin, Blood 3.8 g/dL (2.2-4.0); Potassium, Blood 3.4 mmol/L (3.5-5.5); Total Protein, Blood 6.4 g/dL (6.4-8.2)
--- NOTE | 2021-11-17 06:21 | NUR ---
END OF SHIFT SUMMARY NO ACUTE EVENTS OVER NIGHT. PT CONT TO NOT BE ORIENTED AND CONFUSED; PT FREQUENTLY THOWS LEGS OVER SIDE RAILS AND YELLS OUT; PRN ATIVAN X4, PRN BENADRYL X2 GIVEN THIS SHIFT; PRECEDEX INFUSING AT 0.7MCG/KG/HR. O2 INCREASED WHILE SLEEPING TO 4L NC, CONT TO BE PRODUCTIVE COUGH. HR 80-90'S. SBP 140-160'S. DALE IN PLACE WITH 1300ML OUTPUT. HEPARIN INFUSING AT 19U/KG/HR. NS INFUSING AT 100ML/HR. WILL REPORT TO AM RN WHEN AVAILABLE.
--- NOTE | 2021-11-17 07:53 | NUR ---
ASSUMPTION OF CARE RECEIVED REPORT FROM RENZO KRAUS AT 0700, ASSUMED CARE OF PATIENT. PATIENT IN BED, SWING LEGS AROUND BED AND PULLING AGAINST RESTRAINTS. YELLING AND SCREAMING SWEAR WORDS AND RANDOM NAMES. NO ONE IS PRESENT IN ROOM AT THIS TIME. PATIENT WILL NOT FOLLOW COMMANDS WHEN ASKED, PATIENT WILL NOT ENGAGE IN QUESTIONS, RESPONSE TO ORIENTATION QUESTIONS IS "THIS IS BULL SHIT, I'M NOT GONNA DO IT". PRECEDEX CONTINUES AT 0.7MCG/KG. 02 VIA NC AT 5L CURRENTLY, PATIENT OFTEN TURNING HEAD SIDE TO SIDE AND REMOVING 02. PATIENT DESATS TO 80'S WHEN ON ROOM AIR. CONTINUES TO COUGH THICK, PEDROZA SMALL AMOUNTS OF SPUTUM SPITTING IT OUT ONTO BED. FREQUENT ORAL CARE PROVIDED. DALE PATENT AND DRAINING CLEAR, YELLOW URINE. WILL REVIEW ORDERS AND TREAT PRESCRIBED.
--- NOTE | 2021-11-17 09:57 | NUR ---
UPDATE PATIENT AWAKE, ASKING WHATS WRONG. RN EXPLAINED HE WAS IN THE HOSPITAL. PATIENT CONTINUES TO SAY LETS GO FIND A DR. EXPLAINED THAT THE DR. HAS ALREADY ROUNDED BUT WE CAN CONTACT THEM WITH QUESTIONS. PATIENT BEGAN REPEATING "WHAT'S WRONG WITH ME, LET'S FIND A DR." THEN CLOSED EYES AND BEGAN TO SLEEP. PRECEDEX DECREASED TO 0.6MCG/KG. WILL MONITOR CHANGES.
--- NOTE | 2021-11-17 15:47 | NUR ---
AGITATION PATIENT AWOKE AFTER BEING OFF PRECEDEX CHARTED. BEGAN PULLING OFF GOWN, ATTEMPTING TO PULL AT IV AND SWINGING LEGS AROUND. PATIENT WAS KEEPING EYES CLOSED AND YELLING "SON OF A BITCH, GOD DAMN YOU MOTHER FUCKER". WHEN RN ATTEMPTED TO ORIENT PATIENT TO SITUATION, PATIENT RESPONDED WITH MUMBLING INCOHERENT WORDS. PATIENT WOULD NOT OPEN EYES WHEN ASKED. PRECEDEX RESTARTED AT 0.2MCG/KG. WILL MONITOR RESPONSE.
--- NOTE | 2021-11-17 17:09 | NUR ---
AGITATION PATIENT WITH INCREASED AGITATION, CALLING OUT HELP ME AND TO HELP HIM WITH HIS PANTS. PATIENT NOT DIRECTABLE, UNABLE TO REORIENT TO SITUATION. PATIENT KEEPS CONVERSING TO SELF NONSENSICAL WORDS. DECREASED SP02, INCREASED HEART RATE AND RESPITORY RATE ALL REPORTED TO DR. MELLO. RECEIVED ORDERS FOR ZYPREXA IM, GIVEN CHARTED. OXYMIZER PLACED AT 10L. PATIENT CONTINUES CURRENTLY TO THRASH AROUND BED, ATTEMPT TO KICK AND PUNCH STAFF, AND YELL. WHEN ASKED WHY HE IS YELLING PATIENT WILL SAY HE NEEDS BLOOD MEDICATIONS, OR HE'S ON THE SIDEWALK AND NEEDS A DOCTOR TO HELP HIM. WILL CONTINUE TO PROVIDE ORIENTATION TO SITUATION AND TREAT PRESCRIBED.
--- NOTE | 2021-11-17 18:02 | NUR ---
SHIFT SUMMARY PATIENT DISORIENTED, YELLING, HAS PERIODS OF FOLLOWING COMMANDS, OTHER TIMES STATES NO HE WILL NOT DO WHAT WAS ASKED. ATTEMPTED TO TITRATE PRECEDEX OFF, UNSUCCESSFUL. PATIENT BECAME INCREASINGLY AGITATED THROUGH EVENING, WITH INCREASED HEART RATE, RESP. RATE, AND BLOOD PRESSURE. OXYGEN REQUIREMENTS CHANGED. DR. MELLO NOTIFIED OF PATIENT CHANGE, PROCAL DRAWN AND RESULTED, SPUTUM CULTURE WAS ALREADY SENT. PRN ZYPREXA IM GIVEN. PATIENT CONTINUES TO YELL AND THRASH SELF IN BED, PULLING ON RESTRAINTS VITALS SLOWLY STABILIZING. DEXTROSE FLUIDS ADDED DUE TO NO PO INTAKE. DALE REMAINED PATENT AND DRAINING CLEAR, YELLOW URINE. WILL CONTINUE TO MONITOR AND REPORT TO ONCOMING RN.
--- NOTE | 2021-11-17 21:42 | NUR ---
ASSUMED CARE AT 1900 PT LAYING IN BED VERY RESTLESS AT SHIFT CHANGE. PT IS NOT ORIENTED; WILL OCCATIONLLY ACKNOWLEDGE WHEN HIS NAME IS STATED BUT DOESN'T FOLLOW DIRECTIONS; HE STATED THAT HE WAS IN [facility]; INCREASE IN WEAKNESS WHEN COMPAIRED TO YESTERDAY; PRECEDEX INFUSING AT 0.7MCG/KG/HR; AGITATED DURING PERSONAL CARE, PULLS AGAINST RESTRAINTS, AND RN UNABLE TO FOLLOW HIS CONVERSATION; PRN ATIVAN GIVEN X1 AND HELPFUL. OXIMIZER ON AT 10L; SPO2 96%; TACHYPNIA NOTED WHILE SLEEPING; CONT TO HAVE PRODUCTIVE COUGH. HR 100-120, SBP 150'S WHEN AGITATED. DALE IN PLACE AND DRAINING TO GRAVITY. D5LR INFUSING AT 50ML/HR. SEE SHIFT ASSESSMENT FOR FULL ASSESSMENT.
--- NOTE | 2021-11-18 00:49 | NUR ---
UPDATE PT TEMP 100.7, RECTAL TYLENOL GIVEN. DURING EPISODES OF AGITATION, PT DESATURATE TO THE HIGH 70'S, LOW 80'S, AND HR INCREASES TO 120'S. OXYMIZER TITRATED UP TO 15L, PRN'S GIVEN. WHILE CALM SPO2 95% AND HR 80-90'S. DURING THIS EPISODE OF AGITATION, RN WAS ABLE TO MAKE OUT A FEW MORE WORDS THE PT WAS STATING; PT ASKED "WHAT'S WRONG WITH ME?" ALONG WITH STATED "I DON'T WANT TO BE SICK" AND "I DON'T WANT TO " REPEATEDLY. PT WORKS HIMSELF UP AND BEGINS TO YELL FOR HELP WHEN RN IS IN THE ROOM ASSESSING AND ASKING WHAT IS WRONG BUT PT IS NOT CONSOLABLE OR REDIRECTALBE. PT UNABLE TO STATE WHERE HE IS AFTER EING TOLD HE IS IN THE HOSPITAL.
[2021-11-18 03:38] LABS: BASOPHILS ABSOLUTE AUTO 0.02 K/mm3 (0.00-0.23); BASOPHILS PERCENT AUTO 0 % (0-2); EOSINOPHILS ABSOLUTE AUTO 0.03 K/mm3 (0.00-0.68); EOSINOPHILS PERCENT AUTO 0 % (0-6); Hematocrit 36.3 % (37.0-53.0); Hemoglobin 11.8 g/dL (13.5-17.5); IMMATURE GRAN ABSOLUTE AUTO 0.05 K/mm3 (0.00-0.10); IMMATURE GRAN PERCENT AUTO 0 % (0-1); LYMPHOCYTES ABSOLUTE AUTO 1.21 K/mm3 (0.84-5.20); LYMPHOCYTES PERCENT AUTO 11 % (21-46); MONOCYTES ABSOLUTE AUTO 0.86 K/mm3 (0.16-1.47); MONOCYTES PERCENT AUTO 8 % (4-13); Mean Corpuscular HGB 30.3 pg (26.0-34.0); Mean Corpuscular HGB Conc 32.5 g/dL (31.5-36.5); Mean Corpuscular Volume 93 fL (80-100); Mean Platelet Volume 9.9 fL (9.1-12.4); NEUTROPHILS ABSOLUTE AUTO 9.26 K/mm3 (1.96-9.15); NEUTROPHILS PERCENT AUTO 81 % (41-73); Platelet Count 264 K/mm3 (150-400); RDW Coefficient Variation 13.1 % (11.7-14.2); RDW Standard Deviation 44.9 fL (35.1-46.3); Red Blood Cell Count 3.89 M/mm3 (4.30-5.90); White Blood Cell Count 11.43 K/mm3 (4.00-11.30)
[2021-11-18 03:58] LABS: Albumin, Blood 2.2 g/dL (3.4-5.0); Albumin/Globulin Ratio 0.6 (0.8-1.8); Bilirubin, Total 1.2 mg/dL (0.1-1.0); Bun/Creatinine Ratio 14.8 (12.0-20.0); Calcium, Blood 9.1 mg/dL (8.5-10.1); Creatinine, Blood 0.68 mg/dL (0.60-1.20); Globulin, Blood 3.8 g/dL (2.2-4.0); Potassium, Blood 3.1 mmol/L (3.5-5.5)
--- NOTE | 2021-11-18 06:23 | NUR ---
END OF SHIFT SUMMARY NO ACUTE EVENTS OVER NIGHT. PT CONT TO BE CONFUSED AND CHALLENGING TO UNDERSTAND. SINCE 0000, PT HAS BEEN LESS RESTLESS AND SLEEPING; PRN ATIVAN GIVEN X2, PRN BENADRYL GIVEN X1, PRECEDEX INFUSING AT 0.7MCG/KG/HR. SPO2 >95% ON OXYMIZER 10L; CONT TO HAVE CONGESTED PRODUCTIVE COUGH. HR 70-120'S. SBP 100-140'S. DALE IN PLACE WITH 1100ML URINE OUTPUT. POTASSIUM LAB 3.1 THIS AM, CALLED HOSPITALIST DR AGUILAR WHO PLACED ORDERS TO REPLACE. D5LR INFUSING AT 50ML/HR. WILL REPORT TO AM RN WHEN AVAILABLE.
--- NOTE | 2021-11-18 08:29 | NUR ---
[place] of Care: Care assumed at 0700hr. Patient sleeping, precedex gtt at 0.7mcg/kg/hr. Rouses to verbal stimuli but drowsy. Followed simple commands to open eyes and squeeze hands, otherwise not cooperative. Mumbled speech, "what are you doing", and "fuck you", when providing care. Will attempt to titrate precedex down and give prn zyprexa for agitation. Peripheral IV's x2 patent and intact. Ly cath patent and intact, draining clear dark yellow urine. Currently on 10l/oxymizer, spO2-91-95%. No s/s of dyspnea/SOB. Bilateral soft wrist restraints in place to protect lines, tubes, cords. Will continue to monitor.
[2021-11-18 11:02] LABS: PCO2 Arterial 39.8 mmHg (35-45); PO2 Arterial 80.1 mmHg (80-100); pH Blood Arterial 7.42 (7.35-7.45)
--- NOTE | 2021-11-18 12:00 | NUR ---
Initial Pal Care visit with new referral and staff request to visit. MDT meeting attended and update obtained there and with bedside RN after EMR review. Pt currently on precedex and using nonrebreather mask. He has not been alert, oriented, clear since admission due to toxic metabolic encephalopathy even prior to start of precedex for agitation. 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 One NOK/sister listed in EMR on facesheet was contacted and stated to staff that she did not want any further contact related to pt. I contacted Thang Mahmood and [employer] [facility] and received another NOK contact info for Brother, Kirt Oconnor in [place], [place]. I have left a phone VM for him, requesting a return call re: his brother. That # is [phone]. It did not identify the global process owner of # so I did not leave pt's name in my message. Brother's work # listed is disconnected. I also received a copy of a POLST form filled out by pt and [facility] Dr in 2020. POLST is only completed on front side with no emergency mining detail draftsperson/NOK listed either. Pt specified that he wanted FULL CODE, FULL [place]. However, he also checked NO ARTIFICIAL NUTRITION BY TUBE. All of above shared with pt's RN and placed on Pt's chart. I will await pt's brother's call back to discuss goals of care and whether brother is willing/able to act as surrogate medical decision maker if pt is unable to clear and advocate for himself or understand his current medical status concerns and challenges. Will cont to follow daily at this time. CM dept updated with above info also.
--- NOTE | 2021-11-18 18:27 | NUR ---
Shift Summary: Patient respiratory status declined throughout the morning. SpO2 decreasing to the high 70's-80's, respiratory rate increasing to the 40's. Oxymizer increased to 15L with little to no effect. Call placed to Dr. Mcintyre who reported to bedside. Received orders for BiPAP and IV lasix at that time. BiPAP at 12//80% effective to increase spO2 to 100%, FiO2 then decreased to 50%. Dr. Mcintyre also placed consult for Dr. Singleton after chest x-ray report received (worsening pna). Dr. Singleton to room early afternoon, no new orders received at that time. Inaccurate temporal temp assessed after being placed on BiPAP. Patient felt very warm to touch, therefor rectal temp-probe place, showing temp of 104.3. Rectal tylenol given and ice packs placed to axilla, groin, and back of neck. Temp now decreased to 101.3. No significant changes to neuro status throughout shift. When precedex decreased, patient became more alert, speech cleared, but very nonsensical. Increasing agitation and restlessness, not cooperative with staff. Confused and trying to climb out of bed. PRN Ativan given x2 with good effect. Patient sleeping and this time, appears calm and comfortable. Will continue to monitor until report to NOC shift RN.
--- NOTE | 2021-11-18 19:15 | NUR ---
ASSUMPTION OF CARE PT IS ON BIPAP 05/23/35%. HE IS RECEIVING PRECEDEX 1.0MCG/KG/HR AND NS TKO. HE IS SLEEPING, AROUSABLE TO NOXIOUS STIMULI. HE MOVES HEAD, MOANS, AND MOVES EXTREMITIES. HE DOES NOT FOLLOW ANY COMMANDS AT THIS TIME. BILAT SOFT WRIST RESTRAINTS REMAIN IN PLACE. CORE TEMP 100.6. ICE PACKS REMAIN IN PLACE. SEE SHIFT ASSESSMENT.
[2021-11-19 05:08] LABS: BASOPHILS ABSOLUTE AUTO 0.03 K/mm3 (0.00-0.23); BASOPHILS PERCENT AUTO 0 % (0-2); EOSINOPHILS PERCENT AUTO 1 % (0-6); Hematocrit 38.3 % (37.0-53.0); Hemoglobin 12.7 g/dL (13.5-17.5); IMMATURE GRAN ABSOLUTE AUTO 0.05 K/mm3 (0.00-0.10); IMMATURE GRAN PERCENT AUTO 0 % (0-1); LYMPHOCYTES ABSOLUTE AUTO 1.42 K/mm3 (0.84-5.20); LYMPHOCYTES PERCENT AUTO 10 % (21-46); MONOCYTES ABSOLUTE AUTO 0.69 K/mm3 (0.16-1.47); MONOCYTES PERCENT AUTO 5 % (4-13); Mean Corpuscular HGB 30.5 pg (26.0-34.0); Mean Corpuscular HGB Conc 33.2 g/dL (31.5-36.5); Mean Corpuscular Volume 92 fL (80-100); Mean Platelet Volume 9.7 fL (9.1-12.4); NEUTROPHILS ABSOLUTE AUTO 11.59 K/mm3 (1.96-9.15); NEUTROPHILS PERCENT AUTO 84 % (41-73); Platelet Count 335 K/mm3 (150-400); RDW Coefficient Variation 13.1 % (11.7-14.2); RDW Standard Deviation 44.8 fL (35.1-46.3); Red Blood Cell Count 4.17 M/mm3 (4.30-5.90); White Blood Cell Count 13.88 K/mm3 (4.00-11.30)
[2021-11-19 05:49] LABS: Albumin, Blood 2.2 g/dL (3.4-5.0); Albumin/Globulin Ratio 0.5 (0.8-1.8); Bilirubin, Total 1.1 mg/dL (0.1-1.0); Bun/Creatinine Ratio 26.7 (12.0-20.0); Calcium, Blood 10.4 mg/dL (8.5-10.1); Creatinine, Blood 0.79 mg/dL (0.60-1.20); Globulin, Blood 4.5 g/dL (2.2-4.0); Potassium, Blood 3.8 mmol/L (3.5-5.5); Total Protein, Blood 6.7 g/dL (6.4-8.2)
--- NOTE | 2021-11-19 06:42 | NUR ---
SHIFT SUMMARY PT SLEPT FOR ABOUT HALF OF THE NIGHT. SINCE THEN, HE IS INCREASINGLY MORE IRRITABLE AND AGGITATED. HE OCCASIONALLY SAYS WORDS OR PHRASES THAT ARE NOT APPLICABLE TO THE CONVERSATION OR SITUATION. HE IS NOT REDIRECTABLE. HE CONTINUOUSLY MOVES FACE TO MISPLACE BIPAP MASK. CHANGED TO FULL FACE BIPAP MASK BUT HAS NOT HELPED. HE IS RESTLESS, WRITHING AROUND BED, SCOOTING SELF DOWN, PULLING AGAINST RESTRAINTS. HE ATTEMPTS TO PINCH AND PULL AWAY DURING BLOOD GLUCOSE CHECK. HE IS RECEIVING PRECEDEX 1.4MCG/KG/MIN AND NS TKO. MEDICATED PER EMAR FOR AGITATION WITHOUT SUCCESS. PT HAS NONPRODUCTIVE COUGH, ATTEMPTED TO SPIT AT STAFF EARLIER. HE IS NOW TACHY WITH HR 120S, TACHYPNEIC WITH RATE 20S-40S. CORE TEMP 102.8, ICE PACKS AND FAN APPLIED. WILL ATTEMPT TYLENOL ONCE PT CALMS DOWN. DALE PATENT DRAINING CLOUDY YELLOW URINE WITH SHIFT OUTPUT 350ML. POWERGLIDE REMAINS IN TASHIA, PICC TO TOVA. WILL REPORT TO ONCOMING RN.
--- NOTE | 2021-11-19 07:00 | NUR ---
ASSUMED CARE OF PT THIS AM UPON ARRIVAL INTO ROOM FOR REPORT PT RR IN THE MID 40S WITH ACCESSORY MUSCLE USE ON BIPAP 05/23, 45% FIO2. PT. OCCASIONALLY MOANING AND PULLING AGAINST RESTRAINTS. PT. HR LOW 100S, AND BP 157/67. TEMP 103.3 VIA RECTAL PROBE. MOTTLING NOTED TO KNEES UP TO MID THIGH AT THIS TIME. ICE PACKS PLACED TO CORE AND FAN AT BEDSIDE. PRECEDEX GTT INFUSING AT 1.4MCG/KG/MIN. PICC LINE TO TOVA, AND PG IV TO TASHIA. PT. HAS DALE IN PLACE DRAINING TO GRAVITY.
--- NOTE | 2021-11-19 08:00 | NUR ---
DR. GARCIA IN TO ASSESS PT. ATTEMPTING TO REACH FAMILY REGARDING CODE STATUS.
--- NOTE | 2021-11-19 08:39 | NUR ---
Call to Sister/Code status: Dr. Singleton called to room shortly after shift hange r/t concern for patient's condition. Patient's respirations in the high 40's with accessory muscle use (on BiPAP). Modeling noted to BLE's, temp increased to over 103. Dr. Singleton assessed patient and expressed concern for need to intubate patient, but patient has very poor prognosis (severe pna) and unlikely to successfully come off ventilator. This RN then attempted to call patient's brother "Eleonora", voicemail left to return call. Call then placed to patient's sister "Isa" to discuss patient's current status and plan of care. Severity of patient's condition and prognosis including un-likelyhood to come off ventilator conveyed to Isa. Options of plan of care then discussed in detail including full code/treatment, DNR/DNI, and/or comfort measures. Isa then conveyed "I think it is best to just make him comfortable", also mentioning his current lifestyle and quality of life is poor. This RN then confirmed that Isa understood "comfort measures". Isa expressed adequate understanding and asked to be informed when the patient passes (expires). Dr. Singleton updated on conversation with Isa, orders received to transition to comfort measures.
--- NOTE | 2021-11-19 09:23 | NUR ---
PT MOANING LOUDLY ON BIPAP, RESTLESS IN BED, BIPAP MASK REMOVED FOR COMFORT, MEDICATD WITH PAIN MEDICATION AND ANXIETY MEDICATION FOR COMFORT. PT REMOVED FROM RESTRAINTS.
--- NOTE | 2021-11-19 10:15 | NUR ---
Update recevied from ICU metal sprayer that pt was made comfort care after another call placed to his sister, listed as NOK. I did not receive a return call from pt's brother yesterday or this am. Pt appears to be in distress, moaning, writhing, resp rate of 44-46/min. Spoke with RN who will administer MS as ordered per eMAR for increased s/s noted. Pt is not responsive to voice. Will check back later today for s/s assessment. Pt's color is dusky. He appears to be actively dying at this time.
--- NOTE | 2021-11-19 11:54 | NUR ---
PT MED WITH MORPHINE FOR COMFORT, REPOSITIONED IN BED.
--- NOTE | 2021-11-19 15:28 | NUR ---
REPORT TO MEDICAL FLOOR RN PT. TO BE TRANSFERRED, ALL BELONGINGS TAKEN WITH PT. PT APPEARS COMFORTABLE PRIOR TO TRANSFER.
== END 2021-11-19 18:00 | DRG 871 ==
LOC: ER 14:38 → ICUW 22:30 → MEDS 11-19 15:31 → ICUW 11-19 15:49
PROVIDERS: Family Medicine; Internal Medicine; Student in an Organized Health Care Education/Training Program; ADMIT Internal Medicine
PROC: 3E03329 Introduction of Other Anti-infective into Peripheral Vein, Percutaneous Approach (ICD-10-PCS; 2021-11-14)
PROC: 00JU3ZZ Inspection of Spinal Canal, Percutaneous Approach (ICD-10-PCS; 2021-11-14)
PROC: 009U3ZX Drainage of Spinal Canal, Percutaneous Approach, Diagnostic (ICD-10-PCS; principal; 2021-11-15)
PROC: B01B1ZZ Fluoroscopy of Spinal Cord using Low Osmolar Contrast (ICD-10-PCS; 2021-11-15)
PROC: 02HV33Z Insertion of Infusion Device into Superior Vena Cava, Percutaneous Approach (ICD-10-PCS; 2021-11-18)
PROC: 4A02X4A Measurement of Cardiac Electrical Activity, Guidance, External Approach (ICD-10-PCS; 2021-11-18)
PROC: 5A09357 Assistance with Respiratory Ventilation, Less than 24 Consecutive Hours, Continuous Positive Airway Pressure (ICD-10-PCS; 2021-11-19)
DX: A41.9 Sepsis, unspecified organism (principal); J96.01 Acute respiratory failure with hypoxia; G92.8 Other toxic encephalopathy; I21.4 Non-ST elevation (NSTEMI) myocardial infarction; J18.9 Pneumonia, unspecified organism; E87.2 Acidosis; R44.0 Auditory hallucinations; Z66 Do not resuscitate; Z51.5 Encounter for palliative care; Z78.1 Physical restraint status; Z20.822 Contact with and (suspected) exposure to COVID-19; E78.5 Hyperlipidemia, unspecified; R65.20 Severe sepsis without septic shock; E11.9 Type 2 diabetes mellitus without complications; R44.1 Visual hallucinations; S80.212A Abrasion, left knee, initial encounter; E87.6 Hypokalemia; F03.90 Unspecified dementia, unspecified severity, without behavioral disturbance, psychotic disturbance, mood disturbance, and anxiety; Z91.14 Patient's other noncompliance with medication regimen; F15.10 Other stimulant abuse, uncomplicated; J20.5 Acute bronchitis due to respiratory syncytial virus; I10 Essential (primary) hypertension; Z85.46 Personal history of malignant neoplasm of prostate; F17.210 Nicotine dependence, cigarettes, uncomplicated; Z79.899 Other long term (current) drug therapy; X58.XXXA Exposure to other specified factors, initial encounter
CPT/HCPCS: 36415; 36569; 36600; 51702; 70450; 71045; 77003; 80053; 81001; 81003; 82550; 82803; 82945; 82947; 83036; 83605; 83615; 83880; 84132; 84145; 84157; 84443; 84484; 85025; 85379; 85520; 85610; 85730; 87040; 87070; 87205; 87483; 87804; 87807; 89051; 93005; 93010; 93306; 94660; 94667; 96361; 96374; 96375; 96376; 99285-25; A9270; C1751; G0480; J0133; J0290; J0696; J1200; J1630; J1644; J1650; J1940; J2060; J2270; J2543; J3360; J3370; J3480; J7030; J7040; J7050; J7060; J7121; U0004